=== PATIENT | female | born 1995 | race Caucasian/White ===

== ENCOUNTER 2019-03-17 15:16 | Emergency (ER) | payer OTHER ==
[2019-03-17] MEDS: IBUPROFEN 600 MG TAB PO (16:13)
[2019-03-17] MEDS: ACETAMINOPHEN 325 MG TAB PO (16:14)
== END 2019-03-17 16:48 | disposition home or self-care (01) ==
LOC: FTE 15:16
DX: G44.309 Post-traumatic headache, unspecified, not intractable (principal)
CPT/HCPCS: 99283; Z7502

== ENCOUNTER 2019-03-26 18:40 | Emergency (ER) | payer OTHER ==
[2019-03-26] MEDS: morphine LIQ (10 MG/5 ML) CUP PO (21:32)
[2019-03-26] MEDS: ACETAMINOPHEN 325 MG TAB PO (21:32)
[2019-03-26] MEDS: BACITRACIN 0.9 GM OINT TOP (21:33)
[2019-03-26] MEDS: DIPHTH/TET/ACEL PERTUSS (ADULT) 0.5 ML VIAL IM* (21:36)
[2019-03-26] MEDS: LORAZEPAM 0.5 MG TAB PO (21:36)
== END 2019-03-26 22:36 | disposition home or self-care (01) ==
LOC: FTE 18:40
DX: T21.25XA Burn of second degree of buttock, initial encounter (principal); X03.8XXA Other exposure to controlled fire, not in building or structure, initial encounter; Y92.89 Other specified places as the place of occurrence of the external cause
CPT/HCPCS: 16000; 90471; 90715; 99283-25